=== PATIENT | female | born 1975 | race Two or more races ===

== ENCOUNTER 2020-07-15 06:30 | Day surgery (SDC) | payer OTHER ==
[~2020-07-15 06:30] MED LIST: NORFLEX PO
[2020-07-15] MEDS ORDERED: MORGIDOX100 MG PO (20:23)
[2020-07-15] MEDS ORDERED: Tylenol #3 PO (20:23)
== END 2020-07-15 20:50 | disposition home or self-care (01) ==
LOC: CIR.AMB 06:30
PROVIDERS: ATTEND Obstetrics & Gynecology
DX: D25.0 Submucous leiomyoma of uterus (principal); N84.0 Polyp of corpus uteri; Z20.828 Contact with and (suspected) exposure to other viral communicable diseases